=== PATIENT | female | born 1980 | race Caucasian/White ===

== ENCOUNTER → 2020-02-01 16:25 | Outpatient (BNVA) | payer BC, SELFPAY | PROVIDERS: Family Provider Family Medicine; PCP Family Medicine; Visit Provider Obstetrics & Gynecology | DX: N97.9 Female infertility, unspecified (principal) | CPT/HCPCS: 83001; 83520; 84443; 84450 ==

== ENCOUNTER → 2020-02-14 13:30 | Outpatient (BNVA) | payer BC, SELFPAY | PROVIDERS: Family Provider Family Medicine; PCP Family Medicine; Visit Provider Obstetrics & Gynecology | DX: N97.9 Female infertility, unspecified (principal) | CPT/HCPCS: 84144 ==

== ENCOUNTER → 2020-02-20 13:50 | Outpatient (BNVA) | payer BC, SELFPAY | PROVIDERS: Family Provider Family Medicine; PCP Family Medicine; Visit Provider Obstetrics & Gynecology | DX: N97.9 Female infertility, unspecified (principal) | CPT/HCPCS: 84144 ==

== ENCOUNTER 2020-11-20 10:11 | Outpatient (CLI) | payer BC, SELFPAY ==
[2020-11-21 13:07] LABS: COMPLEMENT COMPONENT C3C 165 mg/dL (83-193); COMPLEMENT COMPONENT C4C 42 mg/dL (15-57)
[2020-11-21 13:42] LABS: CENTROMERE B ANTIBODY <1.0 NEG AI (<1.0 NEG); JO-1 ANTIBODY <1.0 NEG AI (<1.0 NEG); RNP ANTIBODY <1.0 NEG AI (<1.0 NEG); SCL-70 ANTIBODY <1.0 NEG AI (<1.0 NEG); SJOGREN'S ANTIBODY (SS-A) <1.0 NEG AI (<1.0 NEG); SM ANTIBODY <1.0 NEG AI (<1.0 NEG); SS-B <1.0 NEG AI (<1.0 NEG)
[2020-11-21 15:27] LABS: THYROID PEROXIDASE ANTIBODIES 1 IU/mL (<9)
[2020-11-21 15:58] LABS: ANA SCREEN, IFA NEGATIVE (NEGATIVE); COMPLEMENT, TOTAL (CH50) >60 U/mL (31-60)
[2020-11-27 01:43] LABS: DNA AB (DS) CRITHIDIA,IFA NEGATIVE (NEGATIVE)
== END 2020-11-20 10:12 | disposition home or self-care (01) ==
LOC: LAB 10:15
PROVIDERS: PCP Family Medicine; Visit Provider Dermatology
DX: L50.9 Urticaria, unspecified (principal)
CPT/HCPCS: 36415; 86160; 86162; 86235; 86255; 86376

== ENCOUNTER → 2021-02-26 10:13 | Day surgery (SDC) | payer BC, SELFPAY ==
[2021-02-26 10:30] VITALS: BP 151/92; PULSE 70; RESP 18; TEMP 36.2; O2SAT 97
[2021-02-26 10:51] VITALS: BMI 40.7
[2021-02-26] MEDS: omalizumab 150 mg SDV SUBCUT (10:58)
--- NOTE | 2021-02-26 12:48 | PC.NURSE ---
1020-Pt here for first Xolair injection. Did not bring Epi pen, so had to send someone home to get it. Once Epi pen was here, the injection was given subq in left lower abd. Kept patient for 30 min after injection and no reactions noted.
== END ==
PROVIDERS: PCP Nurse Practitioner Family; Visit Provider Dermatology
DX: L50.8 Other urticaria (principal)
CPT/HCPCS: 96372; J2357

== ENCOUNTER → 2021-03-26 10:01 | Day surgery (SDC) | payer BC, SELFPAY ==
[2021-03-26 10:06] VITALS: BP 157/69; PULSE 68; RESP 18; TEMP 35.9; O2SAT 96
[2021-03-26] MEDS: omalizumab 150 mg SDV 300 MG SUBCUT (10:11)
== END ==
PROVIDERS: PCP Nurse Practitioner Family; Visit Provider Dermatology
DX: L50.8 Other urticaria (principal)
CPT/HCPCS: 96372; J2357

== ENCOUNTER → 2021-04-23 09:54 | Day surgery (SDC) | payer BC, SELFPAY ==
[2021-04-23 10:11] VITALS: BP 140/87; PULSE 65; RESP 16; TEMP 36; O2SAT 97; BMI 42.5
[2021-04-23] MEDS: omalizumab 150 mg/mL SYR 300 MG SUBCUT (10:17)
== END ==
PROVIDERS: PCP Nurse Practitioner Family; Visit Provider Dermatology
DX: L50.9 Urticaria, unspecified (principal)
CPT/HCPCS: 96372; J2357

== ENCOUNTER → 2021-05-21 09:56 | Day surgery (SDC) | payer BC, SELFPAY ==
[2021-05-21] MEDS: omalizumab 150 mg/mL SYR 300 MG SUBCUT (10:04)
[2021-05-21 10:14] VITALS: BP 149/77; PULSE 70; RESP 18; TEMP 36.3; O2SAT 98
== END ==
PROVIDERS: PCP Nurse Practitioner Family; Visit Provider Dermatology
DX: L50.8 Other urticaria (principal)
CPT/HCPCS: 96372; J2357

== ENCOUNTER → 2021-06-21 09:21 | Day surgery (SDC) | payer BC, SELFPAY ==
[2021-06-21] MEDS: omalizumab 150 mg/mL SYR SUBCUT ×2 (09:27→09:28)
[2021-06-21 09:35] VITALS: BP 138/91; PULSE 66; RESP 18; TEMP 35.8; O2SAT 98
== END ==
PROVIDERS: PCP Nurse Practitioner Family; Visit Provider Dermatology
DX: L50.8 Other urticaria (principal)
CPT/HCPCS: 96372; J2357

== ENCOUNTER → 2021-07-15 10:00 | Outpatient (BNVA) | payer BC, SELFPAY | PROVIDERS: PCP Nurse Practitioner Family; Visit Provider Obstetrics & Gynecology | DX: L25.5 Unspecified contact dermatitis due to plants, except food (principal); N97.9 Female infertility, unspecified | CPT/HCPCS: 83036; 83520; 83525; 84144; 84443 ==

== ENCOUNTER → 2021-07-18 09:54 | Day surgery (SDC) | payer BC, SELFPAY ==
[2021-07-18 10:00] VITALS: BP 137/81; PULSE 75; RESP 18; TEMP 36.2; O2SAT 97
== END ==
PROVIDERS: PCP Nurse Practitioner Family; Visit Provider Dermatology
DX: L50.9 Urticaria, unspecified (principal)
CPT/HCPCS: 96372

== ENCOUNTER 2021-07-20 11:42 | Outpatient (CLI) | payer BC, SELFPAY ==
[2021-07-20 12:54] LABS: Estradiol 28.7 pg/mL; Follicle Stimulating Hormone 4.5 mIU/mL
== END 2021-07-20 11:43 | disposition home or self-care (01) ==
LOC: LAB 11:44
PROVIDERS: Obstetrics & Gynecology; PCP Nurse Practitioner Family; Visit Provider Nurse Practitioner Family
DX: N97.9 Female infertility, unspecified (principal)
CPT/HCPCS: 82670; 83001

== ENCOUNTER → 2021-08-15 11:53 | Day surgery (SDC) | payer BC, SELFPAY ==
[2021-08-15 12:00] VITALS: BP 131/84; PULSE 72; RESP 18; TEMP 36.4; O2SAT 96
[2021-08-15] MEDS: NON-FORMULARY MEDICATION 300 EACH SUBCUT (12:09)
== END ==
PROVIDERS: PCP Nurse Practitioner Family; Visit Provider Dermatology
DX: L50.8 Other urticaria (principal)
CPT/HCPCS: 96372

== ENCOUNTER → 2021-09-12 11:21 | Day surgery (SDC) | payer BC, SELFPAY ==
[2021-09-12] MEDS: XOLAIR 300 EACH SUBCUT (11:35)
[2021-09-12 11:44] VITALS: BP 135/84; PULSE 62; RESP 18; TEMP 36.3; O2SAT 97
== END ==
PROVIDERS: PCP Nurse Practitioner Family; Visit Provider Dermatology
DX: L50.8 Other urticaria (principal)
CPT/HCPCS: 96372

== ENCOUNTER 2021-09-18 08:23 | Outpatient (CLI) | payer BC, SELFPAY ==
--- NOTE | 2021-09-18 08:30 | FL_ITS ---
WS: [id number] Hysterosalpingogram, 09/18/2021 Clinical Data: N97.9 - Female infertility, unspecified Comparison: None. Fluoroscopy time: 0min [id number] # of spot films: 4 Findings: Dr. Gibson injected contrast material into the uterine cavity. The cavity was normal in size and co nfiguration with air bubbles within. There is a linear filling defect on left side of the uterine cav ity which may be related to the contrast injection. Fallopian tubes are normal in size with no obstru ction or dilatation. Bilateral pelvic spill occurred. FL/FL hysterosalpingography [id number] Impression: Normal hysterosalpingogram.
[2021-09-18] MEDS: iohexol 240 mg/mL 50 mL Btl INTRA-URET (09:08)
--- NOTE | 2021-09-18 10:53 | PM.OP ---
Operative Report Date of procedure: September 18, 2021 Pre-op diagnosis: female infertility Post-op diagnosis: same Post-op findings: normal uterine contour and normal bilateral spill. Procedure done: hysterosalpingogram Surgeon: Rocío Gibson Estimated blood loss: none Complications: none Findings: normal uterine contour and normal bilateral spillage of contrast Procedure: The patient was placed in the dorsal lithotomy position. The speculum was placed into the vagina and the cervix visualized. It was cleansed with betadine. A single tooth tenaculum was placed onto the anterior lip of the cervix. The uterus was sounded to 9 cm. The canula was placed into the cervix. 20 ml of contrast was injected into the uterus. Fluoroscopy was used to take images. All of the instruments were removed. A final picture was taken. The patient tolerated the procedure well. Counts were correct. She was dismissed home in stable condition.
== END 2021-09-18 08:24 | disposition home or self-care (01) ==
LOC: RAD 08:25
PROVIDERS: PCP Nurse Practitioner Family; Visit Provider Obstetrics & Gynecology
DX: N97.9 Female infertility, unspecified (principal)
CPT/HCPCS: 74740

== ENCOUNTER → 2021-10-10 10:52 | Day surgery (SDC) | payer BC, SELFPAY ==
[2021-10-10] MEDS: omalizumab 150 mg/mL SYR 300 MG SUBCUT (10:58)
[2021-10-10 11:07] VITALS: BP 130/77; PULSE 66; RESP 18; TEMP 36.3; O2SAT 97
== END ==
PROVIDERS: PCP Nurse Practitioner Family; Visit Provider Dermatology
DX: L50.8 Other urticaria (principal)
CPT/HCPCS: 96372; J2357

== ENCOUNTER → 2021-10-16 08:45 | Outpatient (BNVA) | payer BC, SELFPAY | PROVIDERS: PCP Nurse Practitioner Family; Visit Provider Obstetrics & Gynecology | DX: Z32.01 Encounter for pregnancy test, result positive (principal) | CPT/HCPCS: 84702 ==

== ENCOUNTER → 2021-10-18 14:06 | Outpatient (BNVA) | payer BC, MEDICAID, SELFPAY | PROVIDERS: PCP Nurse Practitioner Family; Visit Provider Obstetrics & Gynecology | DX: Z32.01 Encounter for pregnancy test, result positive (principal) | CPT/HCPCS: 84702 ==

== ENCOUNTER 2021-11-01 07:24 | Outpatient (CLI) | payer BC, MEDICAID, SELFPAY ==
--- NOTE | 2021-11-01 07:45 | US_ITS ---
WS: [id number] EARLY OBSTETRICAL ULTRASOUND (<14 WEEKS). HISTORY: Z34.90 - Encounter for supervision of normal , u... COMPARISON: None available. Single intrauterine gestational sac is identified. Cardiac activity at 120. [place]-rump length measure s 0.5 cm which corresponds to a gestation of 6w2d. Normal-appearing yolk sac and amnion demonstrated. No subchorionic hemorrhage. No free fluid. Both ovaries are identified and unremarkable. Cervix is closed. US/US OB transvaginal [id number] IMPRESSION: 1. Single intrauterine gestation of 6 weeks 2 days with an EDC of 06/25/2022. 2. Normal cardiac activity.
== END 2021-11-01 07:25 | disposition home or self-care (01) ==
LOC: RAD 07:27
PROVIDERS: PCP Nurse Practitioner Family; Visit Provider Obstetrics & Gynecology
DX: Z34.90 Encounter for supervision of normal pregnancy, unspecified, unspecified trimester (principal)
CPT/HCPCS: 76817

== ENCOUNTER 2021-11-29 06:40 | Outpatient (CLI) | payer BC, MEDICAID, SELFPAY ==
--- NOTE | 2021-11-29 07:00 | US_ITS ---
WS: [id number] EARLY OBSTETRICAL ULTRASOUND (<14 WEEKS). HISTORY: Follow-up subchorionic hemorrhage. COMPARISON: 11/01/2021 Single intrauterine gestational sac is identified. Cardiac activity at 164. [place]-rump length measure s 4.0 cm which corresponds to a gestation of 10w6d. Normal-appearing yolk sac and amnion demonstrated . No subchorionic hemorrhage. No free fluid. Both ovaries are identified and unremarkable. US/US OB transvaginal [id number] IMPRESSION: 1. Single intrauterine gestation of 10 weeks 2 days with an EDC of 06/25/2022. Appropriate growth since the prior ultrasound from 11/01/2021. 2. No subchorionic hemorrhage.
== END 2021-11-29 06:41 | disposition home or self-care (01) ==
LOC: RAD 06:41
PROVIDERS: PCP Nurse Practitioner Family; Visit Provider Obstetrics & Gynecology
DX: O46.90 Antepartum hemorrhage, unspecified, unspecified trimester (principal); Z3A.10 10 weeks gestation of pregnancy
CPT/HCPCS: 76817

== ENCOUNTER 2022-05-21 11:05 | Outpatient (CLI) | payer BC, MEDICAID, SELFPAY ==
[2022-05-21 11:15] VITALS: BP 165/80; PULSE 69
[2022-05-21 11:31] VITALS: BP 126/59; PULSE 66
[2022-05-21 11:38] VITALS: RESP 16; BMI 39.9
[2022-05-21 11:45] VITALS: BP 150/83; PULSE 71
[2022-05-21 12:00] VITALS: BP 139/82; PULSE 73
[2022-05-21 12:15] VITALS: BP 145/84; PULSE 73
== END 2022-05-21 12:18 | disposition home or self-care (01) ==
LOC: OPOB 11:07 → OBGYN 11:08
PROVIDERS: PCP Nurse Practitioner Family; Visit Provider Family Medicine
DX: O24.419 Gestational diabetes mellitus in pregnancy, unspecified control (principal); O09.519 Supervision of elderly primigravida, unspecified trimester; Z3A.00 Weeks of gestation of pregnancy not specified
CPT/HCPCS: 59025

== ENCOUNTER 2022-05-29 11:07 | Outpatient (CLI) | payer BC, MEDICAID, SELFPAY ==
[2022-05-29 11:19] VITALS: RESP 15; TEMP 36.4
[2022-05-29 11:20] VITALS: BMI 39.2
[2022-05-29 11:27] VITALS: BP 138/82; PULSE 70
[2022-05-29 11:47] VITALS: BP 141/76; PULSE 74
[2022-05-29 12:07] VITALS: BP 126/80; PULSE 77
[2022-05-29 12:15] VITALS: BP 126/80; PULSE 77
== END 2022-05-29 12:15 | disposition home or self-care (01) ==
LOC: OPOB 11:16 → OBGYN 11:18
PROVIDERS: PCP Nurse Practitioner Family; Visit Provider Family Medicine
DX: O24.419 Gestational diabetes mellitus in pregnancy, unspecified control (principal); Z3A.00 Weeks of gestation of pregnancy not specified
CPT/HCPCS: 59025; 99211

== ENCOUNTER 2022-06-01 12:55 | Outpatient (CLI) | payer BC, MEDICAID, SELFPAY ==
[2022-06-01] VITALS (7 sets, daily range): BP systolic 127–142; BP diastolic 67–77; PULSE 68–77; BMI 38.7
== END 2022-06-01 14:27 | disposition home or self-care (01) ==
LOC: OPOB 12:55 → OBGYN 12:56
PROVIDERS: PCP Nurse Practitioner Family; Visit Provider Family Medicine
DX: O24.419 Gestational diabetes mellitus in pregnancy, unspecified control (principal); Z3A.00 Weeks of gestation of pregnancy not specified
CPT/HCPCS: 59025; 99211

== ENCOUNTER 2022-06-04 15:24 | Outpatient (CLI) | payer BC, MEDICAID, SELFPAY ==
[2022-06-04 15:30] VITALS: BP 131/85; PULSE 69
[2022-06-04 15:33] VITALS: BMI 40.1
[2022-06-04 15:45] VITALS: BP 132/78; PULSE 72
== END 2022-06-04 15:53 | disposition home or self-care (01) ==
LOC: OPOB 15:25 → OBGYN 15:27
PROVIDERS: PCP Nurse Practitioner Family; Visit Provider Family Medicine
DX: O24.419 Gestational diabetes mellitus in pregnancy, unspecified control (principal); Z3A.00 Weeks of gestation of pregnancy not specified
CPT/HCPCS: 59025; 99211

== ENCOUNTER 2022-06-08 11:08 | Outpatient (CLI) | payer BC, MEDICAID, SELFPAY ==
[2022-06-08 11:21] VITALS: BP 138/73; PULSE 68
[2022-06-08 11:26] VITALS: RESP 16; BMI 40.1
[2022-06-08 11:46] VITALS: BP 131/81; PULSE 75
== END 2022-06-08 11:53 | disposition home or self-care (01) ==
LOC: OPOB 11:13 → OBGYN 11:14
PROVIDERS: PCP Nurse Practitioner Family; Visit Provider Family Medicine
DX: O24.419 Gestational diabetes mellitus in pregnancy, unspecified control (principal); Z3A.00 Weeks of gestation of pregnancy not specified
CPT/HCPCS: 59025

== ENCOUNTER 2022-06-11 11:51 | Outpatient (CLI) | payer BC, MEDICAID, SELFPAY ==
[2022-06-11 11:55] VITALS: TEMP 35.4
[2022-06-11 12:02] VITALS: BMI 40.3
[2022-06-11 12:05] VITALS: RESP 18
[2022-06-11 12:06] VITALS: BP 138/77; PULSE 75
[2022-06-11 12:15] VITALS: BP 143/80; PULSE 75
== END 2022-06-11 12:19 | disposition home or self-care (01) ==
LOC: OPOB 11:52 → OBGYN 11:52
PROVIDERS: PCP Nurse Practitioner Family; Visit Provider Family Medicine
DX: O24.419 Gestational diabetes mellitus in pregnancy, unspecified control (principal); Z3A.00 Weeks of gestation of pregnancy not specified; O09.519 Supervision of elderly primigravida, unspecified trimester
CPT/HCPCS: 59025

== ENCOUNTER 2022-06-15 16:02 | Inpatient (IN) | payer BC, MEDICAID, SELFPAY ==
[2022-06-15] VITALS (37 sets, daily range): BP systolic 129–217; BP diastolic 67–97; PULSE 59–89; RESP 15–18; TEMP 36.7–36.8; O2SAT 97–98; BMI 40.5
[2022-06-15 16:06] LABS: Add Urine Microscopic? NO; Charge for UA Resulting for Rev
[2022-06-15 16:16] LABS: Bilirubin Urine Neg (Negative); Blood Urine Neg (Negative); Glucose Urine UA Norm (Normal); Ketones Urine Negative (Negative); Leukocyte Esterase Urine Negative (Negative); Nitrate Urine Negative (Negative); Protein Urine Neg (Negative); Urine Appearance Clear (CLEAR); Urine Color Yellow (Yellow); Urobilinogen Urine Norm (Negative); pH Urine 7 (5-7)
[2022-06-15 16:24] LABS: Basophils % 0.2 %; Eosinophils # 0.1 10^3/uL (0.0-0.8); Eosinophils % 1.3 %; Hematocrit 32.7 % (37.0-47.0); Hemoglobin 10.7 g/dL (11.5-15.3); Lymphocytes # 1.1 10^3/uL (0.8-4.8); Lymphocytes % 18.4 %; Mean Corpuscular HGB Conc 32.7 g/dL (30.0-36.0); Mean Corpuscular Hemoglobin 29.3 pg (28.0-34.0); Mean Corpuscular Volume 89.6 fl (81-99); Mean Platelet Volume 11.6 fL (7.4-10.4); Monocytes # 0.4 10^3/uL (0.2-0.9); Neutrophils # 4.53 10^3/uL (1.8-7.7); Neutrophils % 73.8 %; Nucleated Red Blood Cells % 0 %; Platelet Count 177 10^3/cmm (130-400); Red Blood Count 3.65 10^6/uL (4.1-5.3); Red Cell Distribution Width 13.2 % (12.1-15.1); White Blood Count 6.1 10^3/uL (4.0-10.0)
[2022-06-15 16:32] LABS: Urine Creatinine 30 mg/dL (28-217); Urine Protein Random 4 mg/dL
[2022-06-15] MEDS: magnesium sulfate premix 2 GM/50 ML PIGGYBACK IV ×2 (16:38→22:30)
[2022-06-15 16:40] LABS: UPRO/UCREAT Ratio 0.13 mg/mg CR
--- NOTE | 2022-06-15 16:40 | P.HP_ITS ---
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 As a part of her evaluation, her blood pressure was checked and she was found to have a markedly elevated blood pressure including a systolic blood pressure of 217. She was very anxious about her C- section tomorrow, and with time her blood pressure did improve to systolics of 160s. In the past she has had a tendency to have blood pressures that have spiked with anxiety, but that has improved as she is calm down. Otherwise, she has had no other symptoms of preeclampsia. She has not had any contractions. Her has been remarkable for having hepatitis C. She has had gestational diabetes has been well controlled with metformin. Present Details : 2 Para: 1 Review of Systems General: Reports: 10 or more systems reviewed and unremarkable except in HPI and below Const: Reports: fatigue; Denies: fever(s) Eyes: Denies: change in vision Card: Denies: chest pain Musc: Reports: back pain Trevor/Lymph: Denies: easy bruising Medications/Allergies Home Medications Medication Instructions Recorded Confirmed Last Taken Type vitamin d 5,000 unit PO DAILY 12/26/19 06/01/22 06/01/22 10:00 History levothyroxine 75 mcg tablet 75 mcg PO DAILY #30 tabs 07/15/21 06/01/22 06/01/22 10:00 Rx vitamn-iron carb-folic 1 cap PO DAILY 07/15/21 06/01/22 06/01/22 10:00 History acid-docusate 95 mg-1 mg-50 mg capsule docusate sodium 100 mg capsule 100 mg PO BID #14 caps 06/17/22 Unknown Rx hydrocodone 5 mg-acetaminophen 325 1 tab PO Q6H PRN Moderate To 06/17/22 Unknown Rx mg tablet Severe Pain #28 tabs ibuprofen 800 mg tablet 800 mg PO TID #45 tabs 06/17/22 Unknown Rx labetalol 200 mg tablet 300 mg PO BID #60 tabs 06/17/22 Unknown Rx furosemide 20 mg tablet (Lasix) 20 mg PO DAILY #7 tabs 06/18/22 Unknown Rx nifedipine 60 mg tablet,extended 60 mg PO DAILY #30 tabs 06/18/22 Unknown Rx release 24 hr (Procardia XL) Allergies Allergy/AdvReac Type Severity Reaction Status Date / Time Penicillins Allergy Severe hives Verified 10/18/21 14:23 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: Medical History Gestational diabetes mellitus (GDM) Hypothyroidism affecting Infertility Urticaria of unknown origin Surgical History History of S/P section S/P cholecystectomy Family History Unknown Breast cancer Diabetes Denies family history of Clotting disorder Hyperlipidemia Anesthesia complication Bleeding disorder Hypertension Thyroid disease Stroke Social History Smoking and tobacco status: former smoker Quit status (tobacco): has quit using tobacco Year quit tobacco: 2013 Alcohol intake: never History of recent travel: No Other Female Reproductive History: Hx Age of Menarche: 14 Duration of menses: 3-5 days (4) Date of Last Menstrual Period: 02/27/20 Cycle Length: monthly Menstrual flow: normal/abnormal: normal History History History 2 Term 1 0 Miscarriages/Ectopic 0 Living Children 1 Vitals/I&O/Wt Last Vital Signs Pulse 78 06/15/22 16:34 BP 167/81 06/15/22 16:34 Weight last 48 hrs Weight 236 lb Physical Exam Const: COMMON NORMALS: patient oriented x3 and alert HENMT: COMMON NORMALS: moist oral mucous membranes HEAD & SCALP: normal to inspection Chest: COMMONS NORMALS: normal inspection of the chest Resp: COMMON NORMALS: clear to auscultation bilaterally AUSCULTATION: clear to auscultation bilaterally Cardio: COMMON NORMALS: regular rate and regular rhythm RATE: regular rate RHYTHM: regular rhythm GI: INSPECTION: Yes normal to inspection and Yes other (Gravid) Extremity: COMMON NORMALS: normal to inspection GENERAL: Yes edema (Trace) Neuro: COMMON NORMALS: patient oriented x3, moves all extremities and no sensory deficits noted SENSORIUM/ORIENTATION: Yes alert Psych: COMMON NORMALS: mental status grossly normal Skin: COMMON NORMALS: no rashes or lesions noted GENERAL SKIN EXAM: no rashes or lesions noted Data 06/15/22 15:48 06/15/22 15:48 A&P Assessment and plan (1) Elevated blood pressure affecting in third trimester, antepartum: Blood pressures are trending down as her anxiety improves. Regardless, given her age, the severity of the elevated blood pressure, and her gestational diabetes we will proceed with her section today rather than wait till tomorrow when she is scheduled. I have placed her on magnesium. We are waiting for the results of her preeclamptic profile. If her blood pressure comes down dramatically when she becomes less anxious, and if her preeclamptic profile is within normal limits, I will consider dropping her magnesium later. (2) Gestational diabetes mellitus (GDM): (3) 38 weeks gestation of : (4) Hypothyroidism affecting : (5) History of : Attestations Medical Necessity Statement*: I anticipate that the patient will require post care that may be extended due to her gestational diabetes as well as her gestational hypertension. Coding Level of Care Code Acute Code for Chg Fwd Diagnoses Elevated blood pressure affecting in third trimester, antepartum O16.3 Gestational diabetes mellitus (GDM) O24.419 38 weeks gestation of Z3A.38 Hypothyroidism affecting O99.280; E03.9 History of Z98.891
[2022-06-15] MEDS: citric acid-sodium citrate 30 mL UDC PO (16:41)
[2022-06-15] MEDS: metoclopramide 5 mg/mL SDV 2 mL 10 MG IVP (16:41)
[2022-06-15] MEDS: famotidine 20 mg/2 mL INJ IVP (16:41)
[2022-06-15] MEDS: lactated ringers 1,000 ML 999 ML IV (16:43)
--- NOTE | 2022-06-15 16:43 | P.ANESASSM_ITS ---
Pre-Anesthetic Assessment Height/Weight: Height 1.63 m Weight 107.048 kg Pulse BP 70 166/83 06/15/22 16:38 06/15/22 16:38 Preop Diagnosis: IUP C section Familial anesthetic complications: None Was Beta Markos taken within 24 hours: N/A Was Clonidine taken within 24 hours: N/A Social No alcohol and No tobacco Exam alert, oriented x 3, clear to auscultation bilaterally and regular rate & rhythm Airway Submandibular: within normal limits Cervical ROM: within normal limits Mallampati: Class II Dentition: full History/ROS No significant history except as noted Pulmonary None reported CV/HEM Hypertension None reported Hepatic None reported GI Gastroesophageal Reflux Disease Metabolic GDM [facility] None reported Neuropsych None reported Anesthetic Plan ASA status: 3E Anesthesia: Anesthesia Evaluation and Regional (specify below) (spinal) Risk of > 500 ml blood loss (7ml/kg in children): Yes, adequate IV access and fluids planned Medications/Allergies Home Medications Medication Instructions Recorded Confirmed Last Taken Type vitamin d 5,000 unit PO DAILY 12/26/19 06/01/22 06/01/22 10:00 History levothyroxine 75 mcg tablet 75 mcg PO DAILY #30 tabs 07/15/21 06/01/22 06/01/22 10:00 Rx vitamn-iron carb-folic 1 cap PO DAILY 07/15/21 06/01/22 06/01/22 10:00 History acid-docusate 95 mg-1 mg-50 mg capsule metformin 500 mg tablet,extended 500 mg PO DAILY #90 tabs 08/09/21 06/01/22 06/01/22 10:00 Rx release 24 hr Allergies Allergy/AdvReac Type Severity Reaction Status Date / Time Penicillins Allergy Severe hives Verified 10/18/21 14:23 [facility] Anesthesia Medical History Infertility Urticaria of unknown origin Surgical History S/P section S/P cholecystectomy Family History (Updated 07/15/21 @ 08:27 by Asmita aGllagher LPN) Unknown Breast cancer Diabetes Denies family history of Clotting disorder Hyperlipidemia Anesthesia complication Bleeding disorder Hypertension Thyroid disease Stroke Social History (Updated 07/15/21 @ 08:27 by Asmita Gallagher LPN) Smoking and tobacco status: former smoker Quit status (tobacco): has quit using tobacco Year quit tobacco: 2013 Alcohol intake: never History of recent travel: No Female Reproductive History : 2 Data Anesthesia 06/15/22 15:48 06/15/22 15:48 Short CBC 06/15/22 Range/Units 15:48 WBC 6.1 (4.0-10.0) 10^3/uL Hgb 10.7 L (11.5-15.3) g/dL Hct 32.7 L (37.0-47.0) % MCV 89.6 (81-99) fl Plt Count 177 (130-400) 10^3/cmm Neut % (Auto) 73.8 % Neut # (Auto) 4.53 (1.8-7.7) 10^3/uL Urine 06/15/22 Range/Units 16:00 Urine Color Yellow (Yellow) Urine Appearance Clear (CLEAR) Urine pH 7 (5-7) Ur Specific [place] 1.010 (1.005-1.030) Urine Protein Neg (Negative) Urine Glucose (UA) Norm (Normal) Urine Ketones Negative (Negative) Urine Nitrate Negative (Negative) Urine Bilirubin Neg (Negative) Ur Leukocyte Esterase Negative (Negative) Cardiac Studies: Holter Monitor 11/22/20
[2022-06-15] MEDS: ceFAZolin 2,000 MG in sodium chloride 0.9% (plus) 50 ML 100 MG IV (16:44)
[2022-06-15 17:02] LABS: Alanine Aminotransferase 23 U/L (0-33); Albumin Level 3.5 g/dL (3.5-5.2); Alkaline Phosphatase 134 U/L (35-105); Anion Gap 15.8 (5-19); Aspartate Amino Transferase 19 U/L (0-32); Blood Urea Nitrogen 5 mg/dL (6-20); Calcium 9.8 mg/dL (8.5-10.5); Carbon Dioxide 22 mmol/L (22-29); Chloride 100 mmol/L (98-107); Globulin 2.8 g/dL (1.3-4.6); Glucose 85 mg/dL (65-115); Osmolality Calculated 275 mOsm/kg (285-295); Potassium 3.8 mmol/L (3.5-5.1); Sodium 134 mmol/L (136-145); Total Bilirubin 0.4 mg/dL (0.15-1.2); Total Protein 6.3 g/dL (6.6-8.7)
--- NOTE | 2022-06-15 17:52 | PM.PACU ---
PACU note Exam: awake Disposition: back to floor
--- NOTE | 2022-06-15 17:58 | ANE.PACU2 ---
Inpatient post-anesthesia follow up: Airway intact: Yes Vital signs: Temperature Pulse Rate 65 Respiratory Rate 12 Blood Pressure 142/70 Pulse Oximetry 100 Oxygen Delivery Me thod Room Air Oxygen Flow Rate Fraction of Inspir ed Oxygen Hydration adequate: Yes Nausea and vomiting: No Pain level: 0 Mental status: Baseline
--- NOTE | 2022-06-15 18:16 | P.OP_ITS ---
Operative Report Date of procedure: June 15, 2022 Pre-op diagnosis: 1. 41-year-old 2 para 1-0-0-1 at 38 weeks and 5 days with elevated blood pressure. 2. History of lower transverse section 3. Gestational diabetes 4. Hypothyroidism Post-op diagnosis: Same Procedure done: Lower transverse section Specimens removed/disposition: 1. A female infant with a weight 6 pounds 11 ounces of and Apgars of 8, 9 2. Placenta with a three-vessel cord delivered intact Pathology: None Surgeon: Sixto Story Estimated blood loss (mL): 800 Complications: None Procedure: The patient was brought back to the operating room where she was prepped and draped in usual sterile fashion. Anesthesia was found to be adequate. A lower transverse skin incision was then made with a #10 blade. I then dissected down to the underlying subcutaneous tissue until arriving at the prerectal fascia. The fascia was then nicked with the scalpel bilaterally. The fascial incisions were then carried laterally with Edwards scissors. Attention was then turned to the superior aspect of the incision which was grasped with kochers and tented up away from the underlying rectus abdominis muscles. The muscles were then dissected away from the fascia manually, and later with Edwards scissors. Attention was then turned to the inferior aspect of the incision, and the fascia was dissected away from the underlying muscle in similar fashion. The rectus abdominis muscles were then spread manually. The peritoneum was entered manually. Excellent visualization of the uterus was noted. A lower transverse uterine incision was then made with a #10 blade. Upon arriving at the intrauterine cavity, the uterine incision was then extended manually. The infant was noted to be in vertex position. The baby was delivered without difficulty. After delivery of the head, the mouth and nose were suctioned at the site of the incision. There was no meconium. There was no nuchal cord. The cord was cut and clamped. The baby was then handed Dr. Garibay. The plac enta was removed intact. The uterus was externalized. The intrauterine cavity was cleansed of any remaining debris. The uterine incision was reapproximated in 2 layers. The first layer was performed with 0 Vicryl in a running locked stitch. The second layer was an imbricating stitch also using 0 Vicryl. The uterus was replaced into the abdomen. The peritoneum was then irrigated with warm saline. I reexamined the uterine incision and found it to be hemostatic. The rectus abdominis muscles were then reapproximated using 0 Vicryl in a running stitch. The fascia was then reapproximated using 0 Vicryl in running stitch. Subcutaneous tissue was then reapproximated using 0 Vicryl in a running stitch. The skin was reapproximated using rodney. A sterile dressing was placed. All counts were correct x2. Both the mother and baby were in stable condition.
[2022-06-15] MEDS: labetalol 5 mg/mL SDV 20mL 20 MG IVP (20:06)
[2022-06-15] MEDS: simethicone 80 mg Chew PO (20:12)
[2022-06-15] MEDS: diphenhydrAMINE 50 mg/mL SDV 1mL 25 MG IVP (20:12)
[2022-06-15 22:22] LABS: Glucose Point of Care 85 mg/dL (70-110)
[2022-06-16] VITALS (42 sets, daily range): BP systolic 116–191; BP diastolic 56–95; PULSE 65–80; RESP 15–16; TEMP 36.1–36.9
[2022-06-16] MEDS: ketorolac 30 mg/mL INJ IVP ×2 (00:45→06:27)
--- NOTE | 2022-06-16 03:41 | PM.OBGYPN ---
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 While her blood pressure initially normalized, she began to increase her blood pressure once again a couple hours post . As result she was given labetalol x1 per protocol. She has been placed on magnesium since prior to her . She has been tolerating that well. Her urine outputs been appropriate. Her pain is been well controlled. There have been no further concerns. Labor: Amniotic Membrane Status: Intact Contraction Pattern: Absent Vitals/I&O/Wt Last Vital Signs Temp 98.5 F 06/16/22 00:19 Pulse 72 06/16/22 02:52 Resp 16 06/16/22 00:19 BP 133/71 06/16/22 02:52 Pulse Ox 98 06/15/22 18:30 O2 Del Method 06/15/22 18:30 06/15/22 06/15/22 06/16/22 14:59 22:59 06:59 Intake Total 850 / 850 375 / 1225 Output Total 1680 / 1680 245 / 1925 Balance -830 / -830 130 / -700 Weight last 48 hrs Weight 236 lb Physical Exam Narrative: She is in no acute distress Lungs are clear auscultation bilaterally Her heart has a regular rate and rhythm Her fundus is below the umbilicus and firm Her dressing is clean, dry and intact Her extremities have trace edema Urinary Catheter Management: Burroughs: Cath Placed During This Visit: yes Reason for Continuing Indwelling Catheter: Accurate Measurement of Urinary Output in Critically Ill Patients Urinary Catheter Date of Insertion: 06/15/22 Urinary Catheter Time of Insertion: 16:45 Data 06/15/22 15:48 06/15/22 15:48 A&P Assessment and plan (1) 38 weeks gestation of : (2) Gestational diabetes mellitus (GDM): Her blood sugars have been well controlled. (3) S/P section: She continues to do well . She has passed flatus. She has had no pain to this point. Her vaginal bleeding has been within normal limits. (4) Gestational hypertension without significant proteinuria, : The patient continues not to have any other signs or symptoms of preeclampsia other than intermittent blood pressure. She has had a history of having intermittent blood pressures that have been elevated associated with her anxiety. Attestations Medical Necessity Statement*: I anticipate the patient will be with us 1-2 more nights if she continues to recover appropriately. Coding Level of Care Code Acute Code for Chg Fwd Diagnoses 38 weeks gestation of Z3A.38 Gestational diabetes mellitus (GDM) O24.419 S/P section Z98.891 Gestational hypertension without significant proteinuria, O13.5
[2022-06-16 06:24] LABS: Hematocrit 29.6 % (37.0-47.0); Hemoglobin 9.6 g/dL (11.5-15.3); Mean Corpuscular HGB Conc 32.4 g/dL (30.0-36.0); Mean Corpuscular Hemoglobin 29.1 pg (28.0-34.0); Mean Corpuscular Volume 89.7 fl (81-99); Mean Platelet Volume 11.5 fL (7.4-10.4); Platelet Count 148 10^3/cmm (130-400); Red Cell Distribution Width 13.1 % (12.1-15.1); White Blood Count 7.1 10^3/uL (4.0-10.0)
[2022-06-16] MEDS: simethicone 80 mg Chew PO (06:27)
[2022-06-16] MEDS: diphenhydrAMINE 50 mg/mL SDV 1mL 25 MG IVP ×2 (06:31→14:45)
[2022-06-16 06:53] LABS: Glucose Point of Care 98 mg/dL (70-110)
[2022-06-16] MEDS: magnesium sulfate premix 20 GM/500 ML BAG IV (07:16)
[2022-06-16] MEDS: dextrose 5%-lactated ringers 1,000 ML 125 ML IV (07:16)
[2022-06-16] MEDS: labetalol 5 mg/mL SDV 20mL 20 MG IVP (08:04)
--- NOTE | 2022-06-16 08:24 | ANE.PACU2 ---
Inpatient post-anesthesia follow up: Airway intact: Yes Vital signs: Temperature 97.9 F Pulse Rate 67 Respiratory Rate 15 Blood Pressure 129/74 Pulse Oximetry 98 Oxygen Delivery Me thod Room Air Oxygen Flow Rate Fraction of Inspir ed Oxygen Hydration adequate: Yes Nausea and vomiting: No Pain level: 2 Mental status: Baseline
[2022-06-16] MEDS: levothyroxine 75 mcg Tablet PO (10:20)
[2022-06-16] MEDS: metformin 500 mg Tablet PO ×2 (10:20→21:08)
--- NOTE | 2022-06-16 12:38 | PC.NURSE ---
Patient requested blood pressure be retaken as she was in the middle of moving and the cuff was sliding down. Retake was not in the severely elevated range.
[2022-06-16] MEDS: labetalol 200 mg Tablet PO ×2 (15:41→22:27)
[2022-06-16] MEDS: HYDROcodone-acetaminophen 5-325 mg Tablet PO ×2 (17:31→22:28)
[2022-06-16] MEDS: docusate sodium 100 mg Capsule PO (17:31)
--- NOTE | 2022-06-16 20:43 | PC.NURSE ---
pt ambulated 3 laps around the unit at this time. tolerated well.
--- NOTE | 2022-06-16 21:35 | PC.NURSE ---
a severe pressure was obtained and when this nurse went to the room, pt requested pressure be retaken because the blood pressure cuff had slid down her arm into her elbow. retake was done and was not severe.
[2022-06-17] VITALS (15 sets, daily range): BP systolic 133–180; BP diastolic 61–82; PULSE 68–76; RESP 18; TEMP 36.2–36.8
[2022-06-17] MEDS: HYDROcodone-acetaminophen 5-325 mg Tablet PO ×3 (02:35→13:58)
[2022-06-17] MEDS: metformin 500 mg Tablet PO ×2 (08:25→17:03)
[2022-06-17] MEDS: docusate sodium 100 mg Capsule PO ×2 (08:25→17:03)
[2022-06-17] MEDS: labetalol 200 mg Tablet PO ×2 (08:25→17:02)
[2022-06-17] MEDS: prenatal vitamin Capsule 1 CAP PO (08:25)
[2022-06-17] MEDS: levothyroxine 75 mcg Tablet PO (08:25)
[2022-06-17] MEDS: ibuprofen 800 mg tablet PO ×3 (08:25→21:04)
[2022-06-17] MEDS: ferrous sulfate EC 325 mg Tablet PO ×2 (08:26→17:03)
[2022-06-17] MEDS: labetalol 200 mg Tablet 100 MG PO (17:41)
--- NOTE | 2022-06-17 17:44 | P.DS_ITS ---
Discharge Providers GEOPHYSICAL LABORATORY SUPERVISOR Date of Admission: 06/15/22 16:02 Date of Discharge: 06/18/22 Attending Provider at Admission: Sixto Story MD Attending Provider at Discharge: Sixto Story MD Primary Care Provider: JUDIE Gamble Diagnoses at Discharge Discharge Diagnosis (1) 38 weeks gestation of : Status: Acute (2) Gestational diabetes mellitus (GDM): Status: Acute (3) S/P section: Status: Acute (4) Gestational hypertension without significant proteinuria, : Status: Acute Reason for Visit Reason for Visit: NST Hospital Course Hospital Course The patient presented to the hospital for a routine NST. At that time her blood pressure was noted to be elevated. We elected to proceed with a repeat lower transverse section as she was scheduled for the following day. Her was unremarkable. She had some severe blood pressures and as result was placed on magnesium for 24 hours. Her preeclamptic profile was unremarkable. Post , she once again began spiking blood pressures. She was initially placed on labetalol, then Procardia XL was added due to persistently elevated blood pressures. Throughout this process the patient did not have any signs of shortness of breath or any other indications that she was in distress at all. She never had any preeclamptic symptoms. Information Peripartum Data: Infant Delivery Method: Physical Exam Narrative: She is in no acute distress Lungs are clear auscultation bilaterally Her heart has a regular rate and rhythm Her fundus is below the umbilicus and firm Her dressing is clean, dry and intact Her extremities have trace edema Urinary Catheter Management: Burroughs: Cath Placed During This Visit: yes, but has since been removed by the nurse Reason for Continuing Indwelling Catheter: Decision to DC Catheter Urinary Catheter Date of Insertion: 06/15/22 Urinary Catheter Time of Insertion: 16:45 Date Urinary Catheter Removed: 06/16/22 Time Urinary Catheter Discontinued: 05:25 History History History 2 Term 1 0 Miscarriages/Ectopic 0 Living Children 1 Discharge Data Studies Completed and Pending Laboratory Results WBC 7.1 10^3/uL (4.0-10.0) 06/16/22 06:14 RBC 3.30 10^6/uL (4.1-5.3) L 06/16/22 06:14 Hgb 9.6 g/dL (11.5-15.3) L 06/16/22 06:14 Hct 29.6 % (37.0-47.0) L 06/16/22 06:14 MCV 89.7 fl (81-99) 06/16/22 06:14 MCH 29.1 pg (28.0-34.0) 06/16/22 06:14 MCHC 32.4 g/dL (30.0-36.0) 06/16/22 06:14 RDW 13.1 % (12.1-15.1) 06/16/22 06:14 Plt Count 148 10^3/cmm (130-400) 06/16/22 06:14 MPV 11.5 fL (7.4-10.4) H 06/16/22 06:14 Neut % (Auto) 73.8 % 06/15/22 15:48 Lymph % (Auto) 18.4 % 06/15/22 15:48 [place] % (Auto) 6.0 % 06/15/22 15:48 Eos % (Auto) 1.3 % 06/15/22 15:48 Baso % (Auto) 0.2 % 06/15/22 15:48 Neut # (Auto) 4.53 10^3/uL (1.8-7.7) 06/15/22 15:48 Lymph # (Auto) 1.1 10^3/uL (0.8-4.8) 06/15/22 15:48 [place] # (Auto) 0.4 10^3/uL (0.2-0.9) 06/15/22 15:48 Eos # (Auto) 0.1 10^3/uL (0.0-0.8) 06/15/22 15:48 Baso # (Auto) 0.0 10^3/uL (0.0-0.1) 06/15/22 15:48 Nucleated RBC % (auto) 0 % 06/15/22 15:48 Nucleated RBCs # 0.0 /100WBC 06/15/22 15:48 Sodium 134 mmol/L (136-145) L 06/15/22 15:48 Potassium 3.8 mmol/L (3.5-5.1) 06/15/22 15:48 Chloride 100 mmol/L (98-107) 06/15/22 15:48 Carbon Dioxide 22 mmol/L (22-29) 06/15/22 15:48 Anion Gap 15.8 (5-19) 06/15/22 15:48 BUN 5 mg/dL (6-20) L 06/15/22 15:48 Creatinine 0.5 mg/dL (0.5-0.9) 06/15/22 15:48 GFR Calculation 136.0 mL/min (90-130) H 06/15/22 15:48 Glucose 85 mg/dL (65-115) 06/15/22 15:48 POC Glucose 98 mg/dL (70-110) 06/16/22 06:49 Calculated Osmolality 275 mOsm/kg (285-295) L 06/15/22 15:48 Uric Acid 4.0 mg/dL (2.4-5.7) 06/15/22 15:48 Calcium 9.8 mg/dL (8.5-10.5) 06/15/22 15:48 Total Bilirubin 0.4 mg/dL (0.15-1.2) 06/15/22 15:48 AST 19 U/L (0-32) 06/15/22 15:48 ALT 23 U/L (0-33) 06/15/22 15:48 Alkaline Phosphatase 134 U/L (35-105) H 06/15/22 15:48 Total Protein 6.3 g/dL (6.6-8.7) L 06/15/22 15:48 Albumin 3.5 g/dL (3.5-5.2) 06/15/22 15:48 Globulin 2.8 g/dL (1.3-4.6) 06/15/22 15:48 Urine Color Yellow (Yellow) 06/15/22 16:00 Urine Appearance Clear (CLEAR) 06/15/22 16:00 Urine pH 7 (5-7) 06/15/22 16:00 Ur Specific [place] 1.010 (1.005-1.030) 06/15/22 16:00 Urine Protein Neg (Negative) 06/15/22 16:00 Urine Glucose (UA) Norm (Normal) 06/15/22 16:00 Urine Ketones Negative (Negative) 06/15/22 16:00 Urine Blood Neg (Negative) 06/15/22 16:00 Urine Nitrate Negative (Negative) 06/15/22 16:00 Urine Bilirubin Neg (Negative) 06/15/22 16:00 Urine Urobilinogen Norm mg/dL (Negative) 06/15/22 16:00 Ur Leukocyte Esterase Negative (Negative) 06/15/22 16:00 U Random Total Protein 4 mg/dL 06/15/22 16:00 Urine Creatinine 30 mg/dL (28-217) 06/15/22 16:00 Protein/Creatinin Ratio 0.13 mg/mg CR 06/15/22 16:00 Vitals Last Vital Signs Temp 97.2 F L 06/17/22 16:22 Pulse 71 06/17/22 16:54 Resp 15 06/16/22 04:03 BP 172/81 06/17/22 16:54 Pulse Ox 98 06/15/22 18:30 O2 Del Method 06/15/22 18:30 Discharge Plan Discharge Patient Disposition: Home Condition: Stable Prescriptions: New docusate sodium 100 mg Capsule 100 mg PO BID Qty: 14 0RF labetalol 200 mg Tablet 300 mg PO BID Qty: 60 0RF ibuprofen 800 mg Tablet 800 mg PO TID Qty: 45 0RF hydrocodone-acetaminophen 5-325 mg Tablet 1 tab PO Q6H PRN (Reason: Moderate To Severe Pain) Qty: 28 0RF nifedipine [Procardia XL] 60 mg tablet extended release 24hr 60 mg PO DAILY Qty: 30 0RF furosemide [Lasix] 20 mg tablet 20 mg PO DAILY Qty: 7 0RF Continued vitamin d capsule 5,000 unit PO DAILY Rx Instructions: 5000 levothyroxine 75 mcg tablet 75 mcg PO DAILY Qty: 30 8RF prenat vit-iron [id number] 95-1-50 mg capsule 1 cap PO DAILY Discontinued metformin 500 mg tablet extended release 24 hr 500 mg PO DAILY Qty: 90 1RF Discharge Orders: Discharge Order (Routine); Ordered 06/17/22 Ordered By: Sixto Story Referrals: Sixto Story MD [Physician] - 06/19/22 3:45 pm Discharge Diet: Usual diet Discharge Activity: Limit activity as instructed Patient Instructions: Labetalol (By mouth), Nifedipine (By mouth), Hydrocodone/Acetaminophen (By mouth), Ibuprofen (By mouth), Laxative, Stool Softeners (By mouth), Depression (GEN), Preeclampsia and Eclampsia After Delivery (GEN), Breast Care for the Non- Mother (GEN), OB Discharge Report, Opioid Safety, OB Home Care, Abnormal Bleeding Discharge Attestations GEOPHYSICAL LABORATORY SUPERVISOR Time Spent in Discharge Care*: greater than 30 min Coding Level of Care Code Acute Code for Chg Fwd Diagnoses 38 weeks gestation of Z3A.38 Gestational diabetes mellitus (GDM) O24.419 S/P section Z98.891 Gestational hypertension without significant proteinuria, O13.5
--- NOTE | 2022-06-17 19:20 | PC.NURSE ---
Blood pressure taken on monitor at 191 is not correct readings. When this nurse entered the room after the high reading her blood pressure cuff was in her elbow and also not the correct size. I got her a new blood pressure cuff that should fit her arm better and set it to take again at [address] Story orders to evaluate discharge or not. patient reports no pain light bleeding and is feeling good. She reports no spots in her vision or headache. She said that she just wants to go home and every time someone comes in the room to take her vitals or she feels the blood pressure cuff going on she gets really nervous and anxious and thinks that is why it is on the higher side.
[2022-06-17] MEDS: NIFEdipine ER (24 hr) 30 mg Tablet 60 MG PO (21:05)
[2022-06-18] VITALS (9 sets, daily range): BP systolic 135–184; BP diastolic 61–81; PULSE 68–102; RESP 17–18; TEMP 36.8
--- NOTE | 2022-06-18 02:36 | PC.NURSE ---
Blood pressure of 184/81 was in her left arm and blood pressure of 158/68 was in her right arm. Patient is resting in bed with eyes closed. Baby is asleep. She has not been out of bed recently or done any activity. Call placed to Dr. bridges at this time.
[2022-06-18] MEDS: HYDROcodone-acetaminophen 5-325 mg Tablet PO (05:01)
--- NOTE | 2022-06-18 07:42 | P.PN_ITS ---
PENSION MANAGER Subjective Subjective: Interval history: This note pertains to the patient's hospital stay on day June 17. The patient has been doing well overall . She was having some blood pressures that were elevated despite increasing her dose of labetalol. Otherwise no symptoms of preeclampsia. Her pain was well controlled. Her bleeding was within normal limits. She is tolerating a regular diet without difficulty. Labor: Amniotic Membrane Status: Intact Contraction Pattern: Absent Vitals/I&O/Wt Last Vital Signs Temp 97.2 F L 06/17/22 22:05 Pulse 73 06/18/22 06:00 Resp 17 06/18/22 04:08 BP 146/72 06/18/22 06:00 Pulse Ox 98 06/15/22 18:30 O2 Del Method 06/15/22 18:30 Physical Exam Narrative: She is in no acute distress Lungs are clear auscultation bilaterally Her heart has a regular rate and rhythm Her fundus is below the umbilicus and firm Her dressing is clean, dry and intact Her extremities have trace edema Urinary Catheter Management: Burroughs: Cath Placed During This Visit: yes, but has since been removed by the nurse Reason for Continuing Indwelling Catheter: Decision to DC Catheter Urinary Catheter Date of Insertion: 06/15/22 Urinary Catheter Time of Insertion: 16:45 Date Urinary Catheter Removed: 06/16/22 Time Urinary Catheter Discontinued: 05:25 Data 06/16/22 06:14 06/15/22 15:48 A&P Assessment and plan (1) Gestational hypertension without significant proteinuria, : We will increase the patient's labetalol to better control her blood pressures. Otherwise she is doing well and appears ready to go home (2) S/P section: Attestations Medical Necessity Statement*: The patient may be going home on the night of if her blood pressures improved. Coding Level of Care Code Acute Code for Chg Fwd Diagnoses Gestational hypertension without significant proteinuria, O13.5 S/P section Z98.891
== END 2022-06-18 09:03 | disposition home or self-care (01) | DRG 787 ==
LOC: OPOB 16:02 → OBGYN 16:02
PROVIDERS: Admitting Provider Family Medicine; PCP Nurse Practitioner Family; Visit Provider Family Medicine
PROC: 10D00Z1 Extraction of Products of Conception, Low, Open Approach (ICD-10-PCS; CPT 59514; principal; 2022-06-15 17:15)
DX: O13.4 Gestational [pregnancy-induced] hypertension without significant proteinuria, complicating childbirth (principal); O98.42 Viral hepatitis complicating childbirth; B19.20 Unspecified viral hepatitis C without hepatic coma; O34.211 Maternal care for low transverse scar from previous cesarean delivery; O24.425 Gestational diabetes mellitus in childbirth, controlled by oral hypoglycemic drugs; O99.284 Endocrine, nutritional and metabolic diseases complicating childbirth; E03.9 Hypothyroidism, unspecified; O13.5 Gestational [pregnancy-induced] hypertension without significant proteinuria, complicating the puerperium; Z3A.38 38 weeks gestation of pregnancy; Z37.0 Single live birth; Z87.891 Personal history of nicotine dependence
CPT/HCPCS: 12345; 36415; 36416; 51702; 59025; 59409; 80053; 81003; 82570; 82962; 84156; 84550; 85025; 85027; 96374; 96376; 99211; J0690; J1200; J1885; J2274; J2405; J2590; J2765; J3010; J3475; J3490; J7120; J7121

== ENCOUNTER → 2023-06-22 10:32 | Outpatient (BNVA) | payer BC, MEDICAID, SELFPAY | PROVIDERS: PCP Family Medicine; Visit Provider Internal Medicine | DX: E03.9 Hypothyroidism, unspecified (principal); E11.9 Type 2 diabetes mellitus without complications | CPT/HCPCS: 36415; 82310; 83970; 84439; 84443; 86800 ==

== ENCOUNTER 2023-07-13 08:21 | Outpatient (CLI) | payer BC, MEDICAID, SELFPAY ==
[2023-07-13 09:10] LABS: Urine Creatinine 183 mg/dL (28-217)
[2023-07-13 09:37] LABS: Total Volume Urine 800 ml
[2023-07-20 16:39] LABS: Free Cortisol Urine 10.3 mcg/24 h (4.0-50.0); Total Urine 800 mL; Urine Creatinine 1.37 g/24 h (0.50-2.15)
== END 2023-07-13 08:22 | disposition home or self-care (01) ==
PROVIDERS: PCP Family Medicine; Visit Provider Internal Medicine
DX: E03.9 Hypothyroidism, unspecified (principal)
CPT/HCPCS: 82530; 82570

== ENCOUNTER → 2024-09-15 14:27 | Outpatient (BNVA) | payer OTHER, SELFPAY | PROVIDERS: PCP Family Medicine; Visit Provider Emergency Medicine | DX: R39.9 Unspecified symptoms and signs involving the genitourinary system (principal) | CPT/HCPCS: 81000; 87086 ==

== ENCOUNTER → 2025-02-20 16:22 | Outpatient (BNVA) | payer OTHER, SELFPAY | PROVIDERS: PCP Family Medicine; Visit Provider Nurse Practitioner | DX: R39.89 Other symptoms and signs involving the genitourinary system (principal) | CPT/HCPCS: 81000 ==

== ENCOUNTER → 2025-02-21 07:12 | Outpatient (BNVA) | payer OTHER, SELFPAY | PROVIDERS: PCP Family Medicine; Visit Provider Nurse Practitioner | DX: R39.89 Other symptoms and signs involving the genitourinary system (principal) | CPT/HCPCS: 87086 ==